=== PATIENT | female | born 1965 ===

== ENCOUNTER 2021-05-30 10:17 | Outpatient (CLI) | payer OTHER | END 2021-05-30 10:27 | disposition home or self-care (01) | LOC: RAD 10:17 | PROVIDERS: ATTEND Orthopaedic Surgery | DX: S93.691A Other sprain of right foot, initial encounter (principal) ==

== ENCOUNTER 2025-01-29 07:52 | Outpatient (CLI) | payer OTHER | END 2025-01-29 07:53 | disposition home or self-care (01) | LOC: NUCLEAR 07:52 | DX: C64.2 Malignant neoplasm of left kidney, except renal pelvis (principal) ==